=== PATIENT | female | born 1960 | race Caucasian/White ===

== ENCOUNTER 2018-11-11 09:23 | Day surgery (SDC) | payer OTHER ==
[~2018-11-11] VITALS: Ht 162.6 cm; Wt 68.1 kg
[~2018-11-11 09:23] MED LIST: HYDACE5325 PO; NAPR220 PO
[2018-11-11] MEDS ORDERED: Bactrim 400-801 EACH (10:12)
--- NOTE | 2018-11-11 10:57 | NUR ---
11/11/18 Sylvie7 Tania Padgett PATIENT AND FAMILY UPDATED TO DELAY. PATIENT HAS NO NEEDS AT THIS TIME. CALL LIGHT WITHIN REACH. WILL CONTINUE TO UPDATE.
== END 2018-11-11 12:10 | disposition home or self-care (01) ==
LOC: ORSCSDS 09:23
PROVIDERS: Internal Medicine Gastroenterology
PROC: 0DBP8ZX Excision of Rectum, Via Natural or Artificial Opening Endoscopic, Diagnostic (ICD-10-PCS; principal; 2018-11-11 10:45)
DX: Z12.11 Encounter for screening for malignant neoplasm of colon (principal); K31.7 Polyp of stomach and duodenum; Z86.010 Personal history of colon polyps; K64.8 Other hemorrhoids; K57.30 Diverticulosis of large intestine without perforation or abscess without bleeding
CPT/HCPCS: 88305; J7120

== ENCOUNTER → 2022-01-18 | Outpatient (CLI) | payer OTHER ==
[~2022-01-18] MED LIST changes: +Bactrim 400-801 EACH
== END ==
LOC: LAB SHORT 15:41 → LAB 15:41
PROVIDERS: Family Medicine
DX: Z12.72 Encounter for screening for malignant neoplasm of vagina (principal); Z90.710 Acquired absence of both cervix and uterus
CPT/HCPCS: G0145

== ENCOUNTER → 2024-05-17 | Outpatient (CLI) | payer OTHER | END | disposition home or self-care (01) | LOC: LAB SHORT 11:43 → LAB 11:43 | DX: N39.0 Urinary tract infection, site not specified (principal) | CPT/HCPCS: 87077; 87086; 87186 ==